=== PATIENT | male | born 1980 | race Two or more races ===

== ENCOUNTER 2018-01-24 20:48 | Emergency (ER) | payer SELFPAY ==
[2018-01-24] MEDS ORDERED: DIPH/PERTUSS(ACELL)/TETANUS VAC/PF 0.5 ML SYR (>=10YO) IM ONE (23:24)
[2018-01-24] MEDS ORDERED: DOXYCYCLINE HYCLATE 100 MG TABLET PO ONE (23:24)
--- NOTE | 2018-01-24 23:28 | ER Document Report ---
HPI - HPI Patient complains to provider of: tick bite Onset: This evening Onset/Duration: Gradual Pain Level: 1 Context: Patient states that he was working outside today and whenever he came in his daughter noticed that he had a tick on his back and removed it with tweezers. Patient states that his daughter suspected that she may have left the mouth parts of the inside in the wound and continued to pickle maker the wound with a tweezers. Patient is concerned that he may have part of the tick still remaining. Pt does not suspect that the insect had been attached longer than a few hours. Associated Symptoms: denies: Fever Exacerbated by: Denies Relieved by: Denies Similar symptoms previously: No Recently seen / treated by doctor: No - ROS ROS below otherwise negative: Yes Systems Reviewed and Negative: Yes All other systems reviewed and negative - CONSTITUTIONAL Constitutional: DENIES: Fever - NEURO Neurology: DENIES: Headache - GASTROINTESTINAL Gastrointestinal: DENIES: Nausea - MUSCULOSKELETAL Musculoskeletal: DENIES: Extremity pain, Back Pain, Neck Pain - DERM Notes: Tick bite Past Medical History - General Information source: Patient - Social History Smoking Status: Never Smoker Frequency of alcohol use: None Drug Abuse: None Occupation: water treatment Lives with: Family Family History: Reviewed & Not Pertinent - Medical History Medical History: Negative Musculoskeltal Medical History: Denies Hx Arthritis, Denies Hx Muscular Dystrophy Traumatic Medical History: Reports: Hx Fractures - fell 12 feet on back during training Surgical Hx: Negative Past Surgical History: Denies: Hx Pacemaker - Immunizations Immunizations up to date: Yes Hx Diphtheria, Pertussis, Tetanus Vaccination: No Vertical Provider Document - CONSTITUTIONAL Agree With Documented VS: Yes Exam Limitations: No Limitations General Appearance: WD/WN, No Apparent Distress - HEENT HEENT: Atraumatic, Normocephalic - NECK Neck: Normal Inspection - RESPIRATORY Respiratory: Breath Sounds Normal, No Respiratory Distress O2 Sat by Pulse Oximetry: 97 - CARDIOVASCULAR Cardiovascular: Regular Rate, Regular Rhythm, No Murmur - MUSCULOSKELETAL/EXTREMETIES Musculoskeletal/Extremeties: MAEW - NEURO Level of Consciousness: Awake, Alert, Appropriate Motor/Sensory: No Motor Deficit - DERM Integumentary: Warm, Dry, No Rash Adult Front & Back Diagram: 1 - Erythematous lesion consistent with reported history of tick removal, area mildly erythematous, no evidence of any insect Course - Vital Signs Vital signs: Temp Pulse Resp BP Pulse Ox 98.7 F 76 116/68 97 01/24/18 21:35 01/24/18 21:35 01/24/18 21:35 01/24/18 21:35 Discharge - Discharge Clinical Impression: Tick bite Qualifiers: Encounter type: initial encounter Qualified Code(s): W57.XXXA - Bitten or stung by nonvenomous insect and other nonvenomous arthropods, initial encounter Condition: Stable Disposition: HOME, SELF-CARE Instructions: Doxycycline ([facility]), Tetanus Immunization Given ([facility]), Tick Bites ( [facility]) Additional Instructions: Return immediately for any new or worsening symptoms Followup with your primary care provider, call tomorrow to make a followup appointment Referrals: [facility] [Provider Group] - Follow up as needed [facility] [Provider Group] - Follow up as needed
[2018-01-24 23:39] VITALS: BP 120/67
== END 2018-01-24 23:50 | disposition home or self-care (01) ==
LOC: ER 20:48
DX: S20.462A Insect bite (nonvenomous) of left back wall of thorax, initial encounter (principal); W57.XXXA Bitten or stung by nonvenomous insect and other nonvenomous arthropods, initial encounter
CPT/HCPCS: 90715; 99281